=== PATIENT | male | born 1990 | race Caucasian/White ===

== ENCOUNTER 2017-01-08 05:38 | Emergency (ER) | payer OTHER ==
[~2017-01-08] VITALS: Ht 180.3 cm; Wt 79.3 kg
[2017-01-08 05:42] VITALS: TEMP 36.9; Ht 180.3 cm; Wt 79.3 kg
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
[2017-01-08 07:02] VITALS: BP 150/69; PULSE 65; O2SAT 100
== END 2017-01-08 07:02 | disposition home or self-care (01) ==
LOC: C.EDB 05:40 → C.EDA 07:02
DX: S29.9XXA Unspecified injury of thorax, initial encounter (principal); V47.1XXA Car passenger injured in collision with fixed or stationary object in nontraffic accident, initial encounter; F17.200 Nicotine dependence, unspecified, uncomplicated